=== PATIENT | female | born 1995 | race Two or more races ===

== ENCOUNTER 2020-10-12 09:41 | Outpatient (CLI) | payer BC | END 2020-10-12 23:59 | disposition home or self-care (01) | LOC: RAD 09:41 | PROVIDERS: ATTEND Internal Medicine Gastroenterology | DX: R11.0 Nausea (principal); R74.8 Abnormal levels of other serum enzymes; R74.01 Elevation of levels of liver transaminase levels; R19.4 Change in bowel habit; R10.13 Epigastric pain | CPT/HCPCS: 78264; A9541 ==